=== PATIENT | male | born 1995 | race American Indian/Alaskan Native ===

== ENCOUNTER 2019-02-11 10:53 | Emergency (ER) | payer SELFPAY ==
[2019-02-11 11:15] VITALS: BP 167/94
--- NOTE | 2019-02-11 11:15 | Emergency Department Report ---
Blank Doc - Documentation Documentation: 23 y o male presents to Ed cc of penile pain, dysuria and d/c x sunday [facility]
--- NOTE | 2019-02-11 13:33 | Emergency Department Report ---
Chief Complaint: Urogenital-Male Stated Complaint: HARD TO URINATE Time Seen by Provider: 02/11/19 11:11 - HPI History of Present Illness: 23-year-old -[place] male presents to the emergency room for penile discharge with dysuria since Sunday. Patient denies any fever chills denies abdominal pain and nausea no vomiting. He does admit to having unprotected intercourse. - ROS Review of Systems: Dysuria, penile discharge No fevers no chills no shortness of breath or chest pain no abdominal pain. No urinary retention no urinary urgency. - Exam Vital Signs: Vital Signs 02/11/19 11:11 Temperature 98.5 F Pulse Rate 69 Respiratory 14 Rate Blood Pressure 167/94 [Right] O2 Sat by Pulse 98 Oximetry Physical Exam: Patient is alert and oriented 3 Abdomen soft nontender nondistended. MSE screening note: Focused history and physical exam performed. Due to findings the following was ordered: Discussed with patient to follow-up with the health Department information was given to patient for community providers. Patient discussed with doctor:: CHAIM CHINCHILLA ED Disposition for [facility] [place] Disposition: MED SCREENING EXAM-LEFT Condition: Stable Referrals: WILLIAM TSANG MD [Primary Care Provider] - 3-5 Days
== END 2019-02-11 13:36 | disposition left against medical advice (07) ==
LOC: ED 10:53
DX: R36.9 Urethral discharge, unspecified (principal); R30.0 Dysuria
CPT/HCPCS: 99281

== ENCOUNTER 2020-09-15 07:43 | Emergency (ER) | payer SELFPAY ==
[2020-09-15] MEDS ORDERED: MECLIZINE 25 MG TAB PO ONE (09:16)
--- NOTE | 2020-09-15 09:16 | Emergency Department Report ---
ED Dizziness HPI - General Chief Complaint: Dizziness Stated Complaint: DIZZY Time Seen by Provider: 09/15/20 08:50 Source: patient Mode of arrival: Ambulatory Limitations: No Limitations - History of Present Illness Initial Comments: 24 year old male with no significant past medical hx presents to ED c/o lightheadedness and dizziness. Patient states that he has been having intermittent episodes of feeling lightheaded for the past 2 days. 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 Patient states that he had to sit down, and when he sat down he reported mild improvement of his dizziness. He also felt like he was having difficulty focusing at the time of the dizziness. He denied any associated nausea, vomiting, he denied any associated chest pain, shortness of breath, focal weakness, numbness or tingling. He denies any URI symptoms or cough. He states since he has been in the ER his lightheadedness and dizziness have improved. Patient states that he was concerned I symptoms could be related to dehydration though he has not had any vomiting or diarrhea. He denied any head injury. He states that he smokes intermittently. He denies any illicit drug use or alcohol abuse. MD Complaint: dizziness, lightheadedness -: Sudden - Related Data Previous Rx's Medication Instructions Recorded Last Taken Type Fluticasone [Flonase] 2 spray NS QDAY #1 bottle 09/15/20 Unknown Rx Loratadine [Claritin] 10 mg PO DAILY #30 tablet 09/15/20 Unknown Rx Meclizine [Antivert] 25 mg PO TID PRN #30 tablet 09/15/20 Unknown Rx Allergies Allergy/AdvReac Type Severity Reaction Status Date / Time No Known Allergies Allergy Unverified 02/11/19 10:54 ED Review of Systems ROS: Stated complaint: DIZZY Other details as noted in HPI Comment: All other systems reviewed and negative Constitutional: denies: chills, diaphoresis, fever, weakness Eyes: denies: eye pain, eye discharge, vision change ENT: denies: ear pain, throat pain Respiratory: denies: cough, shortness of breath, wheezing Cardiovascular: denies: chest pain, palpitations, dyspnea on exertion, edema, sy ncope, paroxysmal nocturnal dyspnea Gastrointestinal: denies: abdominal pain, nausea, vomiting, diarrhea, constipation, hematochezia Genitourinary: denies: urgency, dysuria Musculoskeletal: denies: back pain, joint swelling, arthralgia Skin: denies: rash, lesions Neurological: vertigo. denies: headache, weakness, paresthesias Psychiatric: denies: anxiety, depression Hematological/Lymphatic: denies: easy bleeding, easy bruising ED Past Medical Hx - Past Medical History Previous Medical History?: No - Surgical History Past Surgical History?: No - Social History Smoking Status: Former Smoker Substance Use Type: None - Medications Home Medications: Home Medications Medication Instructions Recorded Confirmed Last Taken Type Fluticasone [Flonase] 2 spray NS QDAY #1 bottle 09/15/20 Unknown Rx Loratadine [Claritin] 10 mg PO DAILY #30 tablet 09/15/20 Unknown Rx Meclizine [Antivert] 25 mg PO TID PRN #30 tablet 09/15/20 Unknown Rx ED Physical Exam - General Limitations: No Limitations General appearance: alert, in no apparent distress - Head Head exam: Present: atraumatic, normocephalic, normal inspection - Eye Eye exam: Present: normal appearance, PERRL, EOMI. Absent: nystagmus Pupils: Present: normal accommodation - ENT ENT exam: Present: normal exam, normal external ear exam, other (Effusions noted behind both TM especially the left side.) - Neck Neck exam: Present: normal inspection, full ROM. Absent: meningismus - Respiratory Respiratory exam: Present: normal lung sounds bilaterally. Absent: respiratory distress, wheezes - Cardiovascular Cardiovascular Exam: Present: regular rate. Absent: normal rhythm, normal heart sounds - GI/Abdominal GI/Abdominal exam: Present: soft. Absent: distended, tenderness - Extremities Exam Extremities exam: Present: normal inspection - Back Exam Back exam: Present: normal inspection - Neurological Exam Neurological exam: Present: alert, oriented X3, CN II-XII intact, normal gait, other (Rlgliu-my-hiln normal; negative Romberg; aerx-hw-rexg normal; gait is normal). Absent: motor sensory deficit - Psychiatric Psychiatric exam: Present: normal affect, normal mood - Skin Skin exam: Present: intact ED Course Vital Signs 09/15/20 09/15/20 07:49 09:38 Temperature 98.7 F Pulse Rate 72 Pulse Rate [ 84 Lying] Respiratory 16 Rate Blood Pressure 160/76 [Lying] Blood Pressure 149/87 [Right] O2 Sat by Pulse 100 Oximetry ED Medical Decision Making - EKG Data EKG shows normal: sinus rhythm Rate: normal (67) - EKG Data Interpretation: no acute changes, normal EKG - Medical Decision Making 24-year-old male presented to the ER today complaining of lightheadedness and dizziness. He denies any associated chest pain or abdominal pain or syncope. He describes the dizziness as a spinning sensation. Patient is a young healthy male with no significant past medical history. On exam patient is awake alert and oriented x3 and has a completely normal neurological exam. EKG normal without acute ischemic changes, STEMI or significant dysrhythmia. Fingerstick blood sugar was normal at 92. Patient was not orthostatic. Urinalysis normal. His blood pressure was noted to be elevated but not critical. He was afebrile, with a normal heart rate normal pulse ox and normal respiratory rate. His history, physical exam, and testing does not suggest acute coronary syndrome, significant dysrhythmia, PE, intracranial abnormality, or any other significant etiologies requiring further testing, emergent consult or admission at this time. His symptoms could be related to BPPV at this time. Discussed results, suspected dx and treatment plan with patient. Also discussed with him that he should follow-up with primary care physician to keep monitoring his blood pressure. Patient expressed understanding of instructions and agreed with plan. Patient was stable at time of discharge. Critical care attestation.: If time is entered above; I have spent that time in minutes in the direct care of this critically ill patient, excluding procedure time. ED Disposition Clinical Impression: Eustachian tube dysfunction, Vertigo Disposition: DC-01 TO HOME OR SELFCARE Is pt being admited?: No Does the pt Need Aspirin: No Condition: Stable Instructions: Vertigo (ED), Dizziness (ED) Additional Instructions: Take meclizine, Flonase , Claritin as prescribed. I recommend that you drink lots of water to maintain hydration. Follow-up with the primary care doctor given on this discharge instruction for continue monitoring of your blood pressure as your blood pressure was elevated during your stay. Return to the ER if your symptoms worsen or changes in any way. Prescriptions: Meclizine [Antivert] 25 mg PO TID PRN #30 tablet PRN Reason: Vertigo Loratadine [Claritin] 10 mg PO DAILY #30 tablet Fluticasone [Flonase] 2 spray NS QDAY #1 bottle Referrals: MENDOZA DOCKERY MD [Staff Physician] - 3-5 Days Forms: Work/School Release Form(ED) Time of Disposition: 11:11
[2020-09-15 09:40] VITALS: BP 160/76
[2020-09-15 10:27] LABS: Bilirubin,Urine NEG (Negative); Blood,Urine NEG (Negative); Color,Urine Yellow (Yellow); Mucus,Urine FEW /HPF; Protein,Urine <15 mg/dL mg/dL (Negative); Urobilinogen,Urine < 2.0 mg/dL (<2.0); WBC,Urine < 1.0 /HPF (0.0-6.0)
== END 2020-09-15 11:26 | disposition home or self-care (01) ==
LOC: ED 07:43
DX: H69.80 Other specified disorders of Eustachian tube, unspecified ear (principal); R42 Dizziness and giddiness; Z79.899 Other long term (current) drug therapy; Z87.891 Personal history of nicotine dependence
CPT/HCPCS: 81001; 82962; 93005